=== PATIENT | female | born 1955 | race Caucasian/White ===

== ENCOUNTER 2016-07-28 18:12 | Emergency (ER) | payer MEDICARE, OTHER ==
--- NOTE | ~2016-07-28 | CR127 ---
[facility] A Service of [facility] RADIOLOGY TEXT RESULTS PATIENT: ESPINOZA BATES LOCATION: EMI : 55 UNIT #: [id number] AGE: [address]: Salomon Iverson MD SEX: F ORDER DR: [id number] [facility] [address] [place], [place] [address] [id number] E MR#: [id number] Acc #: [id number] NAME: ESPINOZA BATES : 1955 SEX: F STUDY DATE/TIME: 07/28/2016 18:16 UNIT: EMI ROOM: STUDY DESCRIPTION: CR Foot Complete Min 3 View Rt Attending Physician: Salomon Iverson M.D. Referring Physician: Slim Leo M.D. Ordering Physician: Salomon Iverson M.D. Primary Care Physician: Slim Leo M.D. MEDICAL IMAGING REPORT This report is preliminary unless electronic signature is present EXAM Right foot 07/28/2016 HISTORY 61-year-old female with right foot pain for 2 days. COMPARISON STUDIES None. FINDINGS 3 views of the right foot demonstrate postsurgical changes of the medial malleolus. No evidence of acute fracture or dislocation. Mild arthrosis and mild hallux valgus of the first metatarsophalangeal joint. No ankle effusion. Soft tissues appear unremarkable. IMPRESSION 1. No acute fracture or dislocation. 2. Postsurgical changes of the medial malleolus. 3. Mild arthrosis and mild hallux valgus first metatarsophalangeal joint. Dictated by... Miles Keller M.D. THIS IS AN ELECTRONICALLY VERIFIED REPORT Miles Keller M.D. at 07/29/2016 9:18 AM MARGY/jennifer TD: 07/28/2016 23:32 JOB #: [id number] [facility] A Service of [facility] RADIOLOGY TEXT RESULTS PATIENT: ESPINOZA BATES LOCATION: [facility] : 55 UNIT #: [id number] AGE: [address]: Salomon Iverson MD SEX: F ORDER DR: MEDICAL IMAGING REPORT COPY
--- NOTE | ~2016-07-28 | CR2 ---
[facility] A Service of [facility] RADIOLOGY TEXT RESULTS PATIENT: ESPINOZA BATES LOCATION: EMI : 55 UNIT #: [id number] AGE: [address]: Salomon Iverson MD SEX: F ORDER DR: [id number] [facility] [address] [place], [place] [address] [id number] E MR#: [id number] Acc #: [id number] NAME: ESPINOZA BATES : 1955 SEX: F STUDY DATE/TIME: 07/28/2016 18:18 UNIT: EMI ROOM: STUDY DESCRIPTION: CR Abdomen Acute Series Attending Physician: Salomon Iverson M.D. Referring Physician: Slim Leo M.D. Ordering Physician: Salomon Iverson M.D. Primary Care Physician: Slim Leo M.D. MEDICAL IMAGING REPORT This report is preliminary unless electronic signature is present EXAM Acute abdomen series. DATE OF EXAM 07/28/2016 HISTORY 61-year-old female with abdominal pain and constipation for 7 days. COMPARISON KUB, 03/19/2011. FINDINGS Frontal chest and 3 flat and upright views of the abdomen were performed. 4 total images. The lungs and pleural spaces are clear. No pneumothorax. Heart size and mediastinum are within normal limits. The bowel gas pattern is nonobstructive. No free intraperitoneal air. Stool burden appears within normal limits. No pathologic calcifications. IMPRESSION No acute chest or abdominal findings. Stool burden appears within normal limits. Dictated by... Miles Keller M.D. THIS IS AN ELECTRONICALLY VERIFIED REPORT Miles Keller M.D. at 07/29/2016 9:18 AM MARGY/joe TD: 07/28/2016 23:50 [facility] A Service of [facility] & [facility] RADIOLOGY TEXT RESULTS PATIENT: ESPINOZA BATES LOCATION: [facility] : 55 UNIT #: [id number] AGE: [address]: Salomon Iverson MD SEX: F ORDER DR: JOB #: [id number] MEDICAL IMAGING REPORT COPY
[~2016-07-28 18:12] MED LIST: BUDEPRION XL300 MG PO; CHANTIX1 MG BC; GEODON60 MG PO; INVEGA3 MG PO; LO-DOSE ASPIRIN81 M1 PO; LOPRESSOR PO; MONTELUKAST SOD10 MG PO; MUCINEX DM ER1 EACH PO; NEURONTIN600 MG; NORVASC2.5 MG PO; REMERON30 MG PO; SEROQUEL XR200 MG; TOPAMAX200 MG PO
== END 2016-07-28 19:45 | disposition home or self-care (01) ==
LOC: CED 18:12
DX: S90.31XA Contusion of right foot, initial encounter (principal); K59.00 Constipation, unspecified; I10 Essential (primary) hypertension; J44.9 Chronic obstructive pulmonary disease, unspecified; E78.5 Hyperlipidemia, unspecified; F17.200 Nicotine dependence, unspecified, uncomplicated; Z86.73 Personal history of transient ischemic attack (TIA), and cerebral infarction without residual deficits; Z98.890 Other specified postprocedural states; W20.8XXA Other cause of strike by thrown, projected or falling object, initial encounter; Y92.9 Unspecified place or not applicable
CPT/HCPCS: 73630; 74022; 99284

== ENCOUNTER 2016-08-04 21:30 | Emergency (ER) | payer MEDICARE, OTHER ==
--- NOTE | ~2016-08-04 | CT4 ---
[facility] A Service of [facility] RADIOLOGY TEXT RESULTS PATIENT: ESPINOZA BATES LOCATION: [facility] : 55 UNIT #: [id number] AGE: [address]: Madina Galeas MD SEX: F ORDER DR: [id number] [facility] [address] [place], [place] [address] [id number] E MR#: [id number] Acc #: [id number] NAME: ESPINOZA BATES : 1955 SEX: F STUDY DATE/TIME: 08/04/2016 22:44 UNIT: [facility] ROOM: STUDY DESCRIPTION: CT Abd and Pelv Wo Cont Attending Physician: Madina Galeas M.D. Ordering Physician: Madina Galeas M.D. Primary Care Physician: Slim Leo M.D. MEDICAL IMAGING REPORT This report is preliminary unless electronic signature is present EXAM Noncontrast CT abdomen and pelvis 08/04/2016 HISTORY Right side abdominal pain for 7 days. Confusion. Difficulty talking. COMPARISON CT abdomen and pelvis without contrast . TECHNIQUE This CT examination was performed with one or more of the following radiation dose reduction techniques: automatic exposure control, adjustment of mA and/or kV according to patient size, and iterative reconstruction. PROCEDURE 5 mm axial images through the abdomen and pelvis without intravenous or enteric contrast. Sagittal and coronal reformatted images were obtained. FINDINGS ABDOMEN: Lung bases are clear. Heart size is within normal limits. Trace anterior pericardial effusion measures up to 9 mm thickness. Benign calcified granuloma in the left lower lobe. The liver, gallbladder, spleen, pancreas, left adrenal and kidneys are within normal limits. No urinary tract stone or hydronephrosis is seen. Right adrenal adenoma measuring 1.5 cm is unchanged from 2008. The appendix is normal. Limited evaluation of bowel due to lack of enteric contrast but no focal bowel inflammatory changes are identified. No free air or free fluid is evident. PELVIS: Presumed hysterectomy. Urinary bladder and rectum are normal. [facility] A Service of [facility] RADIOLOGY TEXT RESULTS PATIENT: ESPINOZA BATES LOCATION: [facility] : 55 UNIT #: [id number] AGE: [address]: Madina Galeas MD SEX: F ORDER DR: Not mentioned above, there may be a punctate nonobstructing stone in the right lower renal pole. Small phleboliths in pelvis on the right. No acute or suspicious osseous abnormalities. IMPRESSION 1. No acute findings in the abdomen or pelvis. 2. Suspected punctate nonobstructing stone in the right lower renal pole. 3. Normal appendix. 4. Hysterectomy. 5. Trace anterior pericardial effusion. 6. Stable right adrenal adenoma. Dictated by... Dawn Pennington M.D. THIS IS AN ELECTRONICALLY VERIFIED REPORT Dawn Pennington M.D. at 08/05/2016 9:15 AM JOAQUÍN/nellie TD: 08/05/2016 06:53 JOB #: [id number] MEDICAL IMAGING REPORT COPY
--- NOTE | ~2016-08-04 | CR72 ---
[facility] A Service of [facility] & [facility] RADIOLOGY TEXT RESULTS PATIENT: ESPINOZA BATES LOCATION: [facility] : 55 UNIT #: [id number] AGE: [address]: Madina Galeas MD SEX: F ORDER DR: [id number] [facility] [address] [place], [place] [address] [id number] E MR#: [id number] Acc #: [id number] NAME: ESPINOZA BATES : 1955 SEX: F STUDY DATE/TIME: 08/04/2016 20:25 UNIT: [facility] ROOM: STUDY DESCRIPTION: CR Chest Single View Portable Attending Physician: Madina Galeas M.D. Ordering Physician: Madina Galeas M.D. Primary Care Physician: Slim Leo M.D. MEDICAL IMAGING REPORT This report is preliminary unless electronic signature is present EXAM Portable chest 1 view, 08/04/2016 COMPARISON 03/19/2011 HISTORY Right side chest pain for 1 week, short of air. FINDINGS Negative chest. Heart size within normal limits given portable technique. No infiltrate or effusion or pneumothorax or other acute abnormality. Dictated by... Kevin Li M.D. THIS IS AN ELECTRONICALLY VERIFIED REPORT Kevin Li M.D. at 08/08/2016 4:34 PM TEV/psc TD: 08/05/2016 01:38 JOB #: [id number] MEDICAL IMAGING REPORT COPY
--- NOTE | ~2016-08-04 | CT71 ---
[facility] A Service of [facility] & [facility] RADIOLOGY TEXT RESULTS PATIENT: ESPINOZA BATES LOCATION: EMI : 55 UNIT #: [id number] AGE: [address]: Madina Galeas MD SEX: F ORDER DR: [id number] [facility] [address] [place], [place] [address] [id number] E MR#: [id number] Acc #: [id number] NAME: ESPINOZA BATES : 1955 SEX: F STUDY DATE/TIME: 08/04/2016 22:40 UNIT: EMI ROOM: STUDY DESCRIPTION: CT Head Wo Contrast Attending Physician: Madina Galeas M.D. Ordering Physician: Madina Galeas M.D. Primary Care Physician: Slim Leo M.D. MEDICAL IMAGING REPORT This report is preliminary unless electronic signature is present EXAM Noncontrast CT head 08/04/2016 HISTORY Confusion and difficulty talking. Right side abdominal pain with groin and leg pain for which began 7 days ago. COMPARISON Noncontrast CT head 02/23/2011. TECHNIQUE This CT examination was performed with one or more of the following radiation dose reduction techniques: automatic exposure control, adjustment of mA and/or kV according to patient size, and iterative reconstruction. FINDINGS Encephalomalacic changes in the left cerebral hemisphere consistent with remote extensive left MCA territory infarct. There is a saccular dilation of the left lateral ventricle. Atrophy of the left mid brain. No evidence of acute infarct. No mass lesion is seen. No intracranial hemorrhage. Paranasal sinuses and mastoid air cells appear clear. No acute calvarial abnormalities. IMPRESSION Left hemisphere encephalomalacia consistent with remote left middle cerebral artery territory infarct. No acute intracranial findings. Dictated by... Dawn Pennington M.D. THIS IS AN ELECTRONICALLY VERIFIED REPORT [facility] A Service of [facility] & [facility] RADIOLOGY TEXT RESULTS PATIENT: ESPINOZA BATES LOCATION: EMI : 55 UNIT #: [id number] AGE: [address]: Madina Galeas MD SEX: F ORDER DR: Dawn Pennington M.D. at 08/05/2016 9:15 AM JOAQUÍN/nellie TD: 08/05/2016 07:00 JOB #: [id number] MEDICAL IMAGING REPORT COPY
[2016-08-04 21:33] LABS: URINE SOURCE CLEAN CATCH
[2016-08-04 21:44] LABS: URINE APPEARANCE CLEAR; URINE BILIRUBIN NEG (NEG); URINE BLOOD NEG (NEG); URINE COLOR YELLOW; URINE GLUCOSE NEG (NEG); URINE KETONE TRACE (NEG); URINE LEUKOCYTE ESTERASE NEG (NEG); URINE NITRATE NEG (NEG); URINE PH 5.5 (5-8); URINE PROTEIN NEG (NEG); URINE SPECIFIC GRAVITY 1.023 (1.003-1.035)
[2016-08-04 21:46] LABS: CULTURE INDICATED? NO
[2016-08-04 22:13] LABS: BASOPHIL# 0.1 X10e3 (0-0.3); BASOPHIL% 1.2 % (0-2.5); EOSINOPHIL# 0.1 X10e3 (0-0.7); EOSINOPHIL% 0.6 % (0.0-7.0); HEMATOCRIT 40.7 % (35.0-45.0); HEMOGLOBIN 13.8 gm/dL (12.0-16.0); LYMPHOCYTE# 1.7 X10e3 (1.0-3.5); LYMPHOCYTE% 20.5 % (17.0-45.0); MEAN CELL VOLUME 89.2 FL (83-96); MEAN CORPUSCULAR HEMOGLOBIN 30.2 PG (28-34); MEAN CORPUSCULAR HGB CONC 33.8 g/dL (30-36); MONOCYTE# 0.5 X10e3 (0-1.0); MONOCYTE% 6.4 % (3.0-12.0); NEUTROPHIL# 5.8 X10e3 (1.5-7.1); NEUTROPHIL% 71.3 % (40-75); PLATELET COUNT 233 X10e3 (140-420); RED BLOOD COUNT 4.56 X10e (3.90-5.30); RED CELL DISTRIBUTION WIDTH 13.3 % (11.0-15.5); WHITE BLOOD COUNT 8.1 X10e3 (4.0-10.5)
[2016-08-04 22:14] LABS: DIFF IND NO
[2016-08-04 22:44] LABS: ALKALINE PHOSPHATASE 78 U/L (32-92); ALT (SGPT) 12 U/L (10-40); AMYLASE 25 U/L (0-46); AST (SGOT) 15 U/L (10-42); BILIRUBIN, DIRECT 0.1 mg/dL (0.0-0.2); BILIRUBIN,INDIRECT 0.4 mg/dL (0.0-0.9); BILIRUBIN,TOTAL 0.5 mg/dL (0.2-2.0); BLOOD UREA NITROGEN 11 mg/dL (9-23); BUN/CREATININE RATIO 18.33; CALCIUM SERUM 8.7 mg/dL (8.4-10.2); CARBON DIOXIDE 21 mmol/L (22-31); CHLORIDE 107 mmol/L (100-111); CPK (CREATINE PHOSPHOKINASE) 62 IU/L (26-140); CREATININE SERUM 0.6 mg/dL (0.6-1.4); GLOM FILT RATE Estimated ABOVE60 mL/min (>60); GLUCOSE FASTING 96 mg/dL (70-110); LIPASE 23 U/L (22-51); POTASSIUM 3.8 mmol/L (3.5-5.1); PROTEIN TOTAL SERUM 7.2 g/dL (6.0-8.3); SODIUM 138 mmol/L (135-145)
[2016-08-04 22:57] LABS: AMPHETAMINE NEG (NEG); BARBITURATES NEG (NEG); BENZODIAZEPINES NEG (NEG); COCAINE NEG (NEG); MARIJUANA NEG (NEG); OPIATES NEG (NEG); TRICYCLIC ANTIDEPRESSANTS POS (NEG); U METHADONE NEG (NEG)
== END 2016-08-05 02:08 | disposition home or self-care (01) ==
LOC: CED 21:30
PROVIDERS: Emergency Medicine
DX: R47.01 Aphasia (principal); R52 Pain, unspecified; E78.5 Hyperlipidemia, unspecified; J44.9 Chronic obstructive pulmonary disease, unspecified; Z86.73 Personal history of transient ischemic attack (TIA), and cerebral infarction without residual deficits; I10 Essential (primary) hypertension
CPT/HCPCS: 36415; 70450; 71010; 74176; 80048; 80076; 80307; 81003; 82150; 82550; 83690; 85025; 99284; J2270; J2405

== ENCOUNTER 2016-08-12 13:35 | Emergency (ER) | payer MEDICARE, OTHER ==
--- NOTE | ~2016-08-12 | EKG ---
PATIENT: ESPINOZA BATES UNIT #: [id number] Ventricular Rate: 93 BPM Atrial Rate: 93 BPM P-R Interval: 146 ms QRS Duration: 62 ms Q-T Interval: 366 ms QTC Calculation(Bezet): 455 ms P [place]: 71 degrees Calculated R [place]: 55 degrees Calculated T [place]: 60 degrees Diagnosis Line: Normal sinus rhythm Diagnosis Line: Normal ECG Diagnosis Line: When compared with ECG of 23-FEB-2011 18:12, Diagnosis Line: No significant change was found Diagnosis Line: Confirmed by AUGUST LARRY MD ([id number]) on Diagnosis Line: 08/14/2016 11:59:20 PM INTERPRETING MD: LARON LUGO
--- NOTE | ~2016-08-12 | CR72 ---
[facility] A Service of [facility] RADIOLOGY TEXT RESULTS PATIENT: ESPINOZA BATES LOCATION: [facility] : 55 UNIT #: [id number] AGE: [address]: Florian Parker MD SEX: F ORDER DR: [id number] [facility] [address] [place], [place] [address] [id number] E MR#: [id number] Acc #: [id number] NAME: ESPINOZA BATES : 1955 SEX: F STUDY DATE/TIME: 08/12/2016 12:28 UNIT: [facility] ROOM: STUDY DESCRIPTION: CR Chest Single View Portable Attending Physician: Florian Parker M.D. Ordering Physician: Florian Parker M.D. Primary Care Physician: Slmi Leo M.D. MEDICAL IMAGING REPORT This report is preliminary unless electronic signature is present EXAM Portable chest x-ray, 08/12/2016. HISTORY Weakness. History of stroke, right side today. Weakness, slurred speech. TECHNIQUE AP right anterior oblique view of the chest is presented. COMPARISON STUDIES 08/04/2016 FINDINGS No acute bony abnormality. Heart normal in size. Mediastinal contour is stable. Increased vascular prominence bilaterally. Increased linear interstitial prominence bilaterally and symmetrically more pronounced in the bilateral [id number] lung zones with some minimal patchy densities at the lung bases immediately adjacent to the diaphragm. Overall appearance suggests moderate pulmonary vascular congestion and mild interstitial edema with some minimal airspace involvement at the lung bases. No pleural effusion or pneumothorax. No suspicious nodule. Dictated by... Jarod Elkins M.D. THIS IS AN ELECTRONICALLY VERIFIED REPORT Jarod Elkins M.D. at 08/12/2016 5:54 PM RUTHIE/lexii TD: 08/12/2016 16:40 [facility] A Service of [facility] RADIOLOGY TEXT RESULTS PATIENT: ESPINOZA BATES LOCATION: [facility] : 55 UNIT #: [id number] AGE: [address]: Florian Parker MD SEX: F ORDER DR: JOB #: [id number] MEDICAL IMAGING REPORT COPY
[2016-08-12 13:26] LABS: URINE SOURCE CLEAN CATCH
[2016-08-12 13:33] LABS: URINE APPEARANCE CLEAR; URINE BILIRUBIN NEG (NEG); URINE BLOOD NEG (NEG); URINE COLOR YELLOW; URINE GLUCOSE NEG (NEG); URINE KETONE NEG (NEG); URINE LEUKOCYTE ESTERASE NEG (NEG); URINE NITRATE NEG (NEG); URINE PROTEIN NEG (NEG); URINE SPECIFIC GRAVITY 1.015 (1.003-1.035); URINE UROBILINOGEN 0.2 MG/DL (NEG)
[2016-08-12 13:34] LABS: BASOPHIL# 0.1 X10e3 (0-0.3); BASOPHIL% 0.6 % (0-2.5); EOSINOPHIL% 0.1 % (0.0-7.0); HEMATOCRIT 45.6 % (35.0-45.0); HEMOGLOBIN 15.2 gm/dL (12.0-16.0); LYMPHOCYTE# 0.7 X10e3 (1.0-3.5); LYMPHOCYTE% 6.5 % (17.0-45.0); MEAN CELL VOLUME 90.9 FL (83-96); MEAN CORPUSCULAR HEMOGLOBIN 30.3 PG (28-34); MEAN CORPUSCULAR HGB CONC 33.4 g/dL (30-36); MEAN PLATELET VOLUME 8.5 FL (6.5-11.5); MONOCYTE# 0.3 X10e3 (0-1.0); MONOCYTE% 3.3 % (3.0-12.0); NEUTROPHIL% 89.5 % (40-75); PLATELET COUNT 248 X10e3 (140-420); RED BLOOD COUNT 5.02 X10e (3.90-5.30); RED CELL DISTRIBUTION WIDTH 13.9 % (11.0-15.5); WHITE BLOOD COUNT 10.1 X10e3 (4.0-10.5)
[2016-08-12 13:45] LABS: DIFF IND NO
[2016-08-12 13:47] LABS: CULTURE INDICATED? NO
[2016-08-12 14:08] LABS: ALBUMIN SERUM 4.4 g/dL (3.5-5.0); ALKALINE PHOSPHATASE 82 U/L (32-92); ALT (SGPT) 15 U/L (10-40); AST (SGOT) 20 U/L (10-42); BILIRUBIN, DIRECT 0.1 mg/dL (0.0-0.2); BILIRUBIN,INDIRECT 0.6 mg/dL (0.0-0.9); BILIRUBIN,TOTAL 0.7 mg/dL (0.2-2.0); BLOOD UREA NITROGEN 10 mg/dL (9-23); BUN/CREATININE RATIO 14.28; CALCIUM SERUM 9.1 mg/dL (8.4-10.2); CARBON DIOXIDE 25 mmol/L (22-31); CHLORIDE 104 mmol/L (100-111); CREATININE SERUM 0.7 mg/dL (0.6-1.4); GLOM FILT RATE Estimated ABOVE60 mL/min (>60); GLUCOSE FASTING 106 mg/dL (70-110); POTASSIUM 3.6 mmol/L (3.5-5.1); SODIUM 141 mmol/L (135-145)
== END 2016-08-12 16:33 | disposition home or self-care (01) ==
LOC: CED 13:35
PROVIDERS: Emergency Medicine
DX: R53.1 Weakness (principal); I63.9 Cerebral infarction, unspecified; I10 Essential (primary) hypertension; F17.200 Nicotine dependence, unspecified, uncomplicated
CPT/HCPCS: 36415; 71010; 80048; 80076; 81003; 82140; 83605; 85025; 87040; 93005; 99284